=== PATIENT | female | born 1955 | race Caucasian/White ===

== ENCOUNTER 2020-08-25 17:44 | Observation (INO) | payer BC ==
[~2020-08-25] VITALS: Ht 162.6 cm; Wt 78.1 kg
--- NOTE | 2020-08-25 18:58 | RAD ---
Examination: CHEST AP ONLY History: CP- productive cough, covid + / Comparison: None. Findings: AP portable upright frontal view of the chest was obtained. The cardiomediastinal silhouette is normal. Lungs are clear. There is no pneumothorax. No pleural effusion is appreciated. No acute bone abnormality. IMPRESSION: No acute cardiopulmonary process. Electronically signed by: Man Hermosillo MD (08/25/2020 6:56 PM) [facility]
[2020-08-25] MEDS ORDERED: IV NORMAL SALINE 1,000ML 1,000 ML IV ONE (19:00)
[2020-08-25 19:20] LABS: CALCIUM 9.9 mg/dL (8.5-10.1); CREATININE 0.7 mg/dL (0.6-1.0); GFR 84.5
[2020-08-25 19:25] LABS: BASO % 0 % (0-3); EOS % 0 % (0-3); HEMATOCRIT 41.1 % (36.0-47.0); HEMOGLOBIN 13.6 g/dL (12.0-15.5); LYMPH % 9 % (24-48); MEAN CORPUSCULAR HEMOGLOBIN 30 pg (25-35); MEAN CORPUSCULAR HGB CONC 33 g/dL (31-37); MEAN CORPUSCULAR VOLUME 90 fL (79-100); MONO # 0.8 x10^3/uL (0.0-1.1); MONO % 7 % (0-9); NEUT # 9.4 x10^3uL (1.8-7.7); NEUT % 84 % (31-73); PLATELET COUNT 353 x10^3/uL (140-400); RED BLOOD COUNT 4.55 x10^6/uL (3.50-5.40); RED CELL DISTRIBUTION WIDTH 13.7 % (11.5-14.5); WHITE BLOOD COUNT 11.2 x10^3/uL (4.0-11.0)
[2020-08-25 19:26] LABS: ALBUMIN 3.2 g/dL (3.4-5.0); ALBUMIN/GLOBULIN RATIO 0.6 (1.0-1.7); TOTAL BILIRUBIN 0.2 mg/dL (0.2-1.0); TOTAL PROTEIN 8.3 g/dL (6.4-8.2)
[2020-08-25 20:11] LABS: BILIRUBIN,URINE NEG (NEG); CLARITY,URINE CLEAR; COLOR,URINE YELLOW; GLUCOSE,URINE NEG (NEG)
[2020-08-25 20:12] LABS: NITRITE,URINE NEG (NEG)
[2020-08-25 20:18] LABS: BACTERIA,URINE FEW /HPF (0-FEW); RBC,URINE 0 /HPF (0-2); SQUAMOUS EPITHELIAL CELL,UR OCC /LPF
--- NOTE | 2020-08-25 20:45 | PHYS DOC ---
Past History Past Medical History: No Pertinent History Past Surgical History: Tubal ligation Alcohol Use: None General Adult EDM: Chief Complaint: COUGH HPI: HPI: 65-year-old female presents with continued cough, shortness of breath. Patient was confirmed COVID-19 about 7 days ago. She is having chest pain that she believes is related to the coughing. This concerned her so she decided come the emergency room today. Her shortness of breath is manageable and not really worse than the last few days. She has had a low-grade fever of 100 degrees. Review of Systems: Review of Systems: Constitutional: Denies fever or chills Eyes: Denies change in visual acuity HENT: Denies nasal congestion or sore throat Respiratory: Cough with shortness of breath Cardiovascular: Chest pain GI: Denies abdominal pain, nausea, vomiting, bloody stools or diarrhea : Denies dysuria Musculoskeletal: Denies back pain or joint pain Integument: Denies rash Neurologic: Denies headache, focal weakness or sensory changes Endocrine: Denies polyuria or polydipsia Lymphatic: Denies swollen glands Psychiatric: Denies depression or anxiety Heart Score: HEART Score for Chest Pain: HEART Score for Chest Pain Response (Comments) Value History Slighlty/Non-Suspicious 0 ECG Normal 0 Age >45 - < 65 1 Risk Factors 1 or 2 Risk Factors 1 Troponin < Normal Limit 0 Total 2 Risk Factors: Risk Factors: DM, Current or recent (<one month) smoker, HTN, HLP, family history of CAD, obesity. Risk Scores: Score 0 - 3: 2.5% MACE over next 6 weeks - Discharge Home Score 4 - 6: 20.3% MACE over next 6 weeks - Admit for Clinical Observation Score 7 - 10: 72.7% MACE over next 6 weeks - Early Invasive Strategies Current Medications: Current Meds: Current Medications Medications (Trade) Dose Ordered Sig/Karie Start Time Stop Time Status Last Admin Dose Admin Sodium Chloride 1,000 ml @ 1,000 mls/hr 1X ONCE 08/25/20 19:00 08/25/20 19:59 DC 08/25/20 19:52 1,000 MLS/HR Allergies: Allergies: Allergies Coded Allergies Type Severity Reaction Last Updated Verified No Known Drug Allergies 08/25/20 No Physical Exam: PE: Constitutional: Well developed, well nourished, no acute distress, non-toxic appearance. [] HENT: Normocephalic, atraumatic, bilateral external ears normal, oropharynx moist, no oral exudates, nose normal. [] Eyes: PERRLA, EOMI, conjunctiva normal, no discharge. [] Neck: Normal range of motion, no tenderness, supple, no stridor. [] Cardiovascular:Heart rate regular rhythm, no murmur [] Lungs & Thorax: Bilateral breath sounds clear to auscultation [] Abdomen: Bowel sounds normal, soft, no tenderness, no masses, no pulsatile masses. [] Skin: Warm, dry, no erythema, no rash. [] Back: No tenderness, no CVA tenderness. [] Extremities: No tenderness, no cyanosis, no clubbing, ROM intact, no edema. [] Neurologic: Alert and oriented X 3, normal motor function, normal sensory function, no focal deficits noted. [] Psychologic: Affect normal, judgement normal, mood normal. [] Current Patient Data: Labs: Laboratory Tests Test 08/25/20 18:36 08/25/20 19:30 White Blood Count 11.2 x10^3/uL (4.0-11.0) H Red Blood Count 4.55 x10^6/uL (3.50-5.40) Hemoglobin 13.6 g/dL (12.0-15.5) Hematocrit 41.1 % (36.0-47.0) Mean Corpuscular Volume 90 fL (79-100) Mean Corpuscular Hemoglobin 30 pg (25-35) Mean Corpuscular Hemoglobin Concent 33 g/dL (31-37) Red Cell Distribution Width 13.7 % (11.5-14.5) Platelet Count 353 x10^3/uL (140-400) Neutrophils (%) (Auto) 84 % (31-73) H Lymphocytes (%) (Auto) 9 % (24-48) L Monocytes (%) (Auto) 7 % (0-9) Eosinophils (%) (Auto) 0 % (0-3) Basophils (%) (Auto) 0 % (0-3) Neutrophils # (Auto) 9.4 x10^3uL (1.8-7.7) H Lymphocytes # (Auto) 1.0 x10^3/uL (1.0-4.8) Monocytes # (Auto) 0.8 x10^3/uL (0.0-1.1) Eosinophils # (Auto) 0.0 x10^3/uL (0.0-0.7) Basophils # (Auto) 0.0 x10^3/uL (0.0-0.2) Sodium Level 138 mmol/L (136-145) Potassium Level 3.0 mmol/L (3.5-5.1) L Chloride Level 99 mmol/L (98-107) Carbon Dioxide Level 26 mmol/L (21-32) Anion Gap 13 (6-14) Blood Urea Nitrogen 12 mg/dL (7-20) Creatinine 0.7 mg/dL (0.6-1.0) Estimated GFR (Cockcroft-Gault) 84.5 BUN/Creatinine Ratio 17 (6-20) Glucose Level 109 mg/dL (70-99) H Lactic Acid Level 1.2 mmol/L (0.4-2.0) Calcium Level 9.9 mg/dL (8.5-10.1) Total Bilirubin 0.2 mg/dL (0.2-1.0) Aspartate Amino Transferase (AST) 27 U/L (15-37) Alanine Aminotransferase (ALT) 49 U/L (14-59) Alkaline Phosphatase 76 U/L (46-116) Troponin I Quantitative < 0.017 ng/mL (0-0.055) Total Protein 8.3 g/dL (6.4-8.2) H Albumin 3.2 g/dL (3.4-5.0) L Albumin/Globulin Ratio 0.6 (1.0-1.7) L Urine Collection Type Unknown Urine Color Yellow Urine Clarity Clear Urine pH 7.0 Urine Specific [place] 1.025 Urine Protein 100 mg/dl (NEG-TRACE) Urine Glucose (UA) Neg mg/dL (NEG) Urine Ketones (Stick) Neg mg/dL (NEG) Urine Blood Trace (NEG) Urine Nitrite Neg (NEG) Urine Bilirubin Neg (NEG) Urine Urobilinogen Dipstick 1.0 mg/dL (0.2 mg/dL) Urine Leukocyte Esterase Neg (NEG) Urine RBC 0 /HPF (0-2) Urine WBC 11-20 /HPF (0-4) Urine Squamous Epithelial Cells Occ /LPF Urine Bacteria Few /HPF (0-FEW) Vital Signs: Vital Signs Date Time Temp Pulse Resp B/P (MAP) Pulse Ox O2 Delivery O2 Flow Rate FiO2 08/25/20 18:43 100.0 124 26 165/86 (112) 93 Room Air EKG: EKG: Sinus tachycardia, rate 120, normal axis, no ST elevations or depressions. [] Radiology/Procedures: Radiology/Procedures: [] Impressions: Examination: CHEST AP ONLY History: CP- productive cough, covid + / Comparison: None. Findings: AP portable upright frontal view of the chest was obtained. The cardiomediastinal silhouette is normal. Lungs are clear. There is no pneumothorax. No pleural effusion is appreciated. No acute bone abnormality. IMPRESSION: No acute cardiopulmonary process. Electronically signed by: Man Irwin MD (08/25/2020 6:56 PM) [facility] DICTATED AND SIGNED BY: MAN IRWIN MD DATE: 08/25/20 185 CC: ADA GUEVARA DO; PCP,UNKNOWN ~ Course & Med Decision Making: Course & Med Decision Making Pertinent Labs and Imaging studies reviewed. (See chart for details) The patient's labs are unremarkable. She has a potassium of 3.0. Very mild white count of just over 11. Troponin is negative. We will give the patient a liter normal saline and her heart rate has improved to just under 100.. Her blood pressure is normal. Her chest x-ray is negative for acute findings. With any exertion, the patient's heart rate increased to 115-120. She is not feeling well. I spoke with Dr. Plasencia about the patient and he has agreed to admit her for observation. [] Dragon Disclaimer: Dragon Disclaimer: This electronic medical record was generated, in whole or in part, using a voice recognition dictation system. Departure Departure: Impression: Primary Impression: COVID-19 Additional Impression: Chest pain Disposition: 09 ADMITTED INPT THIS HOSP Admitting Physician: Jay Abreu Condition: STABLE Referrals: PCP,UNKNOWN (PCP) ADA GUEVARA DO Aug 25, 2020 20:45
[2020-08-25] MEDS ORDERED: POTASSIUM CHLORIDE 20 MEQ TABLET.ER. PO ONE (21:30)
[2020-08-25] MEDS ORDERED: BENZONATATE 100 MG CAPSULE. PO ONE (22:00)
[2020-08-25 22:23] VITALS: BP 146/74
--- NOTE | 2020-08-25 23:00 | NUR ---
The patient, ZEESHAN STANFORD, 65 y/o, F admitted by ATTILA DONG MD, was given written information regarding hospital policies, unit procedures and contact persons. Valuables were checked and documented. pt had no complaints of chest pain at this time. pt stated the only time she has chest pain in when coughing. pt vitals stable and night monitor placed. pt is currently resting comfortably in bed. will continue to monitor.
[2020-08-25] MEDS ORDERED: HYDROcodone/APAP 10/325 1 TAB TABLET PO PRN (23:30)
[2020-08-25] MEDS ORDERED: FLUTICASONE 50MCG/NASAL SPRAY 16GM BOTTLE. NS PRN (23:45)
[2020-08-25] MEDS: ACETAMINOPHEN 500 MG TABLET PO PRN (23:48)
--- NOTE | 2020-08-26 01:23 | EKG ---
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
--- NOTE | 2020-08-26 01:46 | NUR ---
Notified Dr of increased troponin of 0.09 Dr wants notified of 3rd lab value in the morning also to consult cardiac in the morning.
[2020-08-26] MEDS: BENZONATATE 100 MG CAPSULE. PO PRN ×3 (05:54→20:24)
[2020-08-26] MEDS: ACETAMINOPHEN 500 MG TABLET PO PRN ×3 (05:55→23:11)
[2020-08-26 06:12] VITALS: BP 117/60
[2020-08-26] MEDS: PANTOPRAZOLE 40 MG TABLET. PO SCH ×2 (08:48→16:44)
[2020-08-26] MEDS ORDERED: POTASSIUM CHLORIDE 20 MEQ TABLET.ER. PO ONE (09:00)
[2020-08-26 10:25] VITALS: BP 121/76
--- NOTE | 2020-08-26 11:30 | HP ---
ADMIT DATE: 08/25/2020 ATTENDING PHYSICIAN: Dr. Brady Braun is in practice in [place], [place]. CHIEF COMPLAINT: Cough and chest pain. HISTORY OF PRESENT ILLNESS: The patient is a 65-year-old female who used to live in [place]. She has moved to [place], closer to her daughter. She had confirmed COVID-19 coronavirus about 7 days ago. Symptoms included shortness of breath, cough and congestion. She is not a smoker. She came to the Emergency Room. Her shortness of breath is manageable. She required very little oxygen. Currently, she has adequate saturations on room air. She had serial enzymes. The purpose of admission then was to rule out coronary ischemia. The first set of enzymes were negative, but the third set showed slight elevation of troponin. She is then having a formal Cardiology consultation. She is agreeable. There is a strong family history of heart disease, although her risk factors are still minimal. FAMILY HISTORY: Indicates that her 3 out of 4 grandparents of heart failure, 2 grandfathers of sudden cardiac arrest. SOCIAL HISTORY: She was a smoker up until about 5 years ago. She does not drink any alcohol. As noted, she quit smoking 5 years ago. PAST MEDICAL HISTORY: She has had a tubal ligation. There is no history of diabetes, hypertension, or previous heart disease. CURRENT MEDICATIONS: Reviewed. She was taking p.r.n. Tessalon Perles, fluticasone, hydrocodone, and Protonix. ALLERGIES: She has no recorded drug allergies. REVIEW OF SYSTEMS: Significant for the cough, congestion, pleuritic type chest pain. Cough is nonproductive. No nausea or vomiting. All other systems reviewed and determined to be negative. PHYSICAL EXAMINATION: GENERAL: When I saw her, this is a pleasant, middle-aged female. INITIAL VITAL SIGNS: Showed a blood pressure of 146/74 mmHg; pulse of 109 and regular, it is down to 82 now; temperature 100.1 degrees Fahrenheit. HEENT: Head is without trauma. Pupils are reactive. Sclerae nonicteric. Oropharynx clear. NECK: Supple. LUNGS: Actually clear with good breath sounds. CARDIOVASCULAR: Showed regular heart tones. No gallops. Peripheral pulses palpable and full. ABDOMEN: Soft, no guarding, no masses. EXTREMITIES: Showed no cyanosis or edema. NEUROLOGIC: Focally intact. Speech is fluent. SKIN: Warm and dry. DIAGNOSTIC STUDIES: The chest x-ray on admission showed clear lung felder, normal costophrenic angles. Heart size is normal. No acute process or infiltrates identified. LABORATORY STUDIES: Hemoglobin is 13.6 g/dL, white count 11,200. The third set of cardiac enzymes was elevated at 0.114. Electrolytes showed a sodium of 130, potassium 3.0 mEq. ASSESSMENT: 1. A 65-year-old female with recent COVID-19 infection. She does not have respiratory failure nor does she have evidence of pneumonia at this time. 2. Atypical chest pain; at first thought to be pleuritic, but she had a slight rise in her cardiac enzymes. 3. Family history of heart disease. 4. Former smoker. 5. Etiology of hypokalemia is unclear. 6. Gastroesophageal reflux disease. PLAN: 1. Admission to the hospital unit. 2. Telemetry monitoring. 3. Serial cardiac enzymes have been done. 4. Formal Cardiology consultation has been entertained. 5. I would recommend an echocardiogram either as an inpatient or an outpatient. 6. Diet as tolerated. ATTILA DONG MD DR: JERRY/olivia JOB#: [id number] / [id number] PETRA Ogden DO
--- NOTE | 2020-08-26 13:10 | PDOC2 ---
CONSULT DOS: DATE: 08/26/20 TIME: 13:10 Reason for Consult: Elevated troponin level Referring Physician: Dr. Abreu Chief Complaint Cough and shortness of breath Source: Chart review, Patient Problem List Problems Medical Problems: (1) Chest pain Status: Acute (2) COVID-19 Status: Acute (3) Pneumonia due to COVID-19 virus Status: Acute History of Present Illness 65-year-old female was recently diagnosed with COVID 1 week ago presented complaining of shortness of breath and coughing. She also complained of chest pain with coughing. She denied any orthopnea/PND, palpitations or syncope. Her troponin level was slightly elevated prompting cardiology consultation. Past Medical History Gastroesophageal reflux disease Past Surgical History Tubal ligation Family History Congestive heart failure, cardiac arrest Social History Patient quit smoking 5 years ago and denied any alcohol or drug use Current Medications Current Medications Sodium Chloride 1,000 ml @ 1,000 mls/hr 1X ONCE IV Last administered on 08/25/20at 19:52; Start 08/25/20 at 19:00; Stop 08/25/20 at 19:59; Status DC Potassium Chloride (Klor-Con) 40 meq 1X ONCE PO Last administered on 08/25/20at 21:34; Start 08/25/20 at 21:30; Stop 08/25/20 at 21:31; Status DC Benzonatate (Tessalon Perle) 100 mg 1X ONCE PO Last administered on 08/25/20at 21:52; Start 08/25/20 at 22:00; Stop 08/25/20 at 22:01; Status DC Benzonatate (Tessalon Perle) 100 mg PRN Q6HRS PRN PO COUGH Last administered on 08/26/20at 08:48; Start 08/25/20 at 23:30 Acetaminophen (Tylenol) 1,000 mg PRN Q6HRS PRN PO MILD PAIN / TEMP > 100.3'F Last administered on 08/26/20at 05:55; Start 08/25/20 at 23:30 Acetaminophen/ Hydrocodone Bitart (Lortab 10/325) 1 tab PRN QID PRN PO PAIN; Start 08/25/20 at 23:30 Pantoprazole Sodium (Protonix) 40 mg BIDBFRMEAL PO Last administered on 08/26/20at 08:48; Start 08/26/20 at 07:30 Fluticasone Propionate (Flonase) 2 spray PRN BID PRN NS ALLERGIES; Start 08/25/20 at 23:45 Potassium Chloride (Klor-Con) 40 meq DAILY ONCE PO Last administered on 08/26/20at 08:50; Start 08/26/20 at 09:00; Stop 08/26/20 at 09:01; Status DC Allergies: Coded Allergies: No Known Drug Allergies (Unverified , 08/25/20) PSYCHOLOGICAL ROS: No: Hallucinations Eyes: No: Loss of vision HEENT: No: Epistaxis ENDOCRINE: No: Palpitations Respiratory: YES: Cough, Shortness of breath Cardiovascular: yes: Chest Pain Gastrointestinal: No: Vomiting, Diarrhea Neurological: No: Seizures Skin: No: Rash General: Alert, No acute distress HEENT: Atraumatic Lungs: Other (Scattered crepitations bilaterally) Heart: Regular rate Abdomen: Soft Extremities: No edema Psych/Mental Status: Mood NL VITALS Vital Signs Date Time Temp Pulse Resp B/P (MAP) Pulse Ox O2 Delivery O2 Flow Rate FiO2 08/26/20 10:25 99.7 93 20 121/76 (91) 95 Room Air Labs Laboratory Tests Test 08/25/20 18:36 08/25/20 19:30 08/26/20 01:00 08/26/20 06:30 White Blood Count 11.2 x10^3/uL (4.0-11.0) Red Blood Count 4.55 x10^6/uL (3.50-5.40) Hemoglobin 13.6 g/dL (12.0-15.5) Hematocrit 41.1 % (36.0-47.0) Mean Corpuscular Volume 90 fL (79-100) Mean Corpuscular Hemoglobin 30 pg (25-35) Mean Corpuscular Hemoglobin Concent 33 g/dL (31-37) Red Cell Distribution Width 13.7 % (11.5-14.5) Platelet Count 353 x10^3/uL (140-400) Neutrophils (%) (Auto) 84 % (31-73) Lymphocytes (%) (Auto) 9 % (24-48) Monocytes (%) (Auto) 7 % (0-9) Eosinophils (%) (Auto) 0 % (0-3) Basophils (%) (Auto) 0 % (0-3) Neutrophils # (Auto) 9.4 x10^3uL (1.8-7.7) Lymphocytes # (Auto) 1.0 x10^3/uL (1.0-4.8) Monocytes # (Auto) 0.8 x10^3/uL (0.0-1.1) Eosinophils # (Auto) 0.0 x10^3/uL (0.0-0.7) Basophils # (Auto) 0.0 x10^3/uL (0.0-0.2) Sodium Level 138 mmol/L (136-145) Potassium Level 3.0 mmol/L (3.5-5.1) Chloride Level 99 mmol/L (98-107) Carbon Dioxide Level 26 mmol/L (21-32) Anion Gap 13 (6-14) Blood Urea Nitrogen 12 mg/dL (7-20) Creatinine 0.7 mg/dL (0.6-1.0) Estimated GFR (Cockcroft-Gault) 84.5 BUN/Creatinine Ratio 17 (6-20) Glucose Level 109 mg/dL (70-99) Lactic Acid Level 1.2 mmol/L (0.4-2.0) Calcium Level 9.9 mg/dL (8.5-10.1) Total Bilirubin 0.2 mg/dL (0.2-1.0) Aspartate Amino Transf (AST/SGOT) 27 U/L (15-37) Alanine Aminotransferase (ALT/SGPT) 49 U/L (14-59) Alkaline Phosphatase 76 U/L (46-116) Troponin I Quantitative < 0.017 ng/mL (0-0.055) 0.094 ng/mL (0-0.055) 0.114 ng/mL (0-0.055) Total Protein 8.3 g/dL (6.4-8.2) Albumin 3.2 g/dL (3.4-5.0) Albumin/Globulin Ratio 0.6 (1.0-1.7) Urine Collection Type Unknown Urine Color Yellow Urine Clarity Clear Urine pH 7.0 Urine Specific [place] 1.025 Urine Protein 100 mg/dl (NEG-TRACE) Urine Glucose (UA) Neg mg/dL (NEG) Urine Ketones (Stick) Neg mg/dL (NEG) Urine Blood Trace (NEG) Urine Nitrite Neg (NEG) Urine Bilirubin Neg (NEG) Urine Urobilinogen Dipstick 1.0 mg/dL (0.2 mg/dL) Urine Leukocyte Esterase Neg (NEG) Urine RBC 0 /HPF (0-2) Urine WBC 11-20 /HPF (0-4) Urine Squamous Epithelial Cells Occ /LPF Urine Bacteria Few /HPF (0-FEW) Assessment/Plan 1. Chest pain with atypical features, most probably musculoskeletal since this usually occurs with coughing. Troponin level slightly elevated, most probably demand ischemia but coronary disease needs to be ruled out. Plan for 2D echo and Lexiscan nuclear stress test once COVID infection resolves, probably as an outpatient. 2. Hypokalemia: Replace orally 3. COVID infection without evidence of pneumonia on chest x-ray: Per primary team 4. Gastroesophageal reflux disease: Continue PPIs Thank you for your consultation KIRBY HOUSE MD Aug 26, 2020 13:10
[2020-08-26 14:10] VITALS: BP 151/75
[2020-08-26 20:56] VITALS: BP 126/62
[2020-08-26 23:12] VITALS: BP 139/75
--- NOTE | 2020-08-27 05:01 | NUR ---
Pt had fever at beginning of shift, relieved with tylenol. Pt had no c/o chest pain. Tele monitor in place through night.
[2020-08-27 06:33] VITALS: BP 148/75
--- NOTE | 2020-08-27 06:40 | NUR ---
Pt IV dislodged; called Dr. Abreu, no IV needed at this time.
[2020-08-27] MEDS: PANTOPRAZOLE 40 MG TABLET. PO SCH (09:16)
--- NOTE | 2020-08-27 10:56 | NUR ---
Patient discharged to home. Given written discharge instructions and voiced understanding. All patient belongings sent home with patient. Patient ambulated self off unit. No concerns noted.
--- NOTE | 2020-08-27 13:22 | DS ---
DATE OF DISCHARGE: 08/27/2020 ATTENDING PHYSICIAN: Dr. Dong. FINAL DISCHARGE DIAGNOSES: 1. Atypical chest pain due to recent COVID-19 infection. 2. Elevation of cardiac enzymes due to stress demand ischemia. 3. Family history of heart disease. 4. Gastroesophageal reflux disease. HISTORY AND PHYSICAL: This is a 65-year-old female, who 9 days ago was diagnosed with COVID-19 infection. She had a cough. No evidence of pneumonia. She had chest pain. She was admitted for further treatment and evaluation. PHYSICAL EXAMINATION: Please see the dictated note. PERTINENT LABORATORY AND X-RAY STUDIES: Troponins were 0.017, second one 0.094 and the third one 0.114, slight elevation above the limits of normal. Potassium is 3.0, this was replaced. She was asymptomatic. Her hemoglobin was 13.6 g/dL with a white count 11,200. Her COVID-19 coronavirus swab was determined positive 9 days ago. COURSE IN THE HOSPITAL: She was treated, she responded well to a cough syrup. Cardiology consult, they felt that there is nothing acute. She could be discharged home following her COVID quarantine. She can have an outpatient stress test and echocardiogram. Therefore, on the third hospital day, her vital signs were stable. Blood pressure was 139/75, temperature on the day of discharge 98.9 degrees Fahrenheit. She had oxygen saturation 95% on room air. Please note, her chest x-ray on this admission showed no acute infiltrates. Therefore, I sent her home with a script for Tussionex 5 mL q.12 hours p.r.n. cough, K-Dur 20 mEq 1 daily for 10 days. Followup chemistries with her PCP. We gave her the name and phone number of the Cardiology services here at [facility]. She hopefully will schedule with them in a week's time for outpatient evaluation, echocardiogram and Lexiscan. She was discharged from our hospital in stable condition with explicit instructions and followup care. ATTILA DONG MD DR: JERRY/olivia JOB#: [id number] / [id number] PETRA Ogden DO
== END 2020-08-27 10:59 | disposition home or self-care (01) ==
LOC: ER 17:44 → 1 SOUTH 20:50 → ER 21:54
PROVIDERS: ADMIT Hospitalist; ATTEND Hospitalist
DX: R07.89 Other chest pain (principal); U07.1 COVID-19; E87.6 Hypokalemia; K21.9 Gastro-esophageal reflux disease without esophagitis; I24.8 Other forms of acute ischemic heart disease; Z86.19 Personal history of other infectious and parasitic diseases; Z87.891 Personal history of nicotine dependence; Z98.51 Tubal ligation status
CPT/HCPCS: 36415; 71045; 80053; 81001; 83605; 84484; 85025; 87040; 87086; 93005; 96360; 99285; G0378; J7030; G0379